=== PATIENT | female | born 1980 | race Caucasian/White ===

== ENCOUNTER 2018-03-17 14:15 | Inpatient (IN) | payer OTHER ==
[~2018-03-17] VITALS: Ht 152.4 cm; Wt 97.5 kg
[2018-03-17] MEDS ORDERED: CYMBALTA30 MG PO (15:13)
[2018-03-17] MEDS ORDERED: CLONAZEPAM2 MG PO (15:13)
[2018-03-17] MEDS ORDERED: SINGULAIR10 MG PO (15:14)
[2018-03-17] MEDS ORDERED: ZYRTEC10 M2 PO (15:14)
[2018-03-17] MEDS ORDERED: PROVENTIL HFA6.7 GM IH (15:14)
== END 2018-03-21 12:26 | disposition home or self-care (01) | DRG 473 ==
LOC: PED 03-20 05:21 → O/R 03-20 05:21 → SURG-SUITE 03-20 13:00 → PED 03-20 15:04
PROVIDERS: Orthopaedic Surgery
PROC: 0RT30ZZ Resection of Cervical Vertebral Disc, Open Approach (ICD-10-PCS; 2018-03-20)
PROC: 3E0F7GC Introduction of Other Therapeutic Substance into Respiratory Tract, Via Natural or Artificial Opening (ICD-10-PCS; 2018-03-20)
PROC: 0RG20A0 Fusion of 2 or more Cervical Vertebral Joints with Interbody Fusion Device, Anterior Approach, Anterior Column, Open Approach (ICD-10-PCS; principal; 2018-03-20 13:00)
DX: M48.02 Spinal stenosis, cervical region (principal); M50.122 Cervical disc disorder at C5-C6 level with radiculopathy; M50.322 Other cervical disc degeneration at C5-C6 level; J45.20 Mild intermittent asthma, uncomplicated; G47.33 Obstructive sleep apnea (adult) (pediatric); R73.01 Impaired fasting glucose; E66.01 Morbid (severe) obesity due to excess calories; F41.8 Other specified anxiety disorders; J30.89 Other allergic rhinitis